=== PATIENT | female | born 1970 | race American Indian/Alaskan Native ===

== ENCOUNTER 2017-11-05 14:43 | Emergency (ER) | payer OTHER ==
--- NOTE | 2017-11-05 18:45 | Emergency Department Report ---
Chief Complaint: Syncope Stated Complaint: SYNCOPE - HPI History of Present Illness: 47-year-old female presents after syncope this morning approximately 6:35 AM She remembers taking a shower, she then woke up on the floor. She had preceding symptoms of feeling lightheaded. She denies chest pain. No shortness of breath. She denies back pain. No use of oral contraceptives. She took her blood pressure medicine this morning. She feels a little off. She desires STD testing because her significant other travels often. She is concerned that she could possibly be exposed to STD. I explained to her the testing should be obtained by her primary care physician. She is able to follow -up with her primary care physician tomorrow. - Exam Vital Signs: Vital Signs 11/05/17 14:55 Temperature 98 F Pulse Rate 100 H Respiratory 16 Rate Blood Pressure 154/94 O2 Sat by Pulse 98 Oximetry MSE screening note: Focused history and physical exam performed. Due to findings the following was ordered: ED Disposition for MSE Condition: Stable Referrals: PRIMARY CARE, [Primary Care Provider] - 3-5 Days
[2017-11-05 19:25] LABS: BUN/Creatinine Ratio 17; Blood Urea Nitrogen 10 mg/dL (7-17); Calcium 9.7 mg/dL (8.4-10.2); Hemolysis Index 36
[2017-11-05 19:29] LABS: Basophils # (Auto) 0.1 K/mm3 (0.0-0.1); Eosinophils # (Auto) 0.1 K/mm3 (0.0-0.4); Eosinophils % (Auto) 0.5 % (0.0-4.3); Hematocrit 39.5 % (30.3-42.9); Hemoglobin 12.4 gm/dl (10.1-14.3); Lymphocytes # (Auto) 2.7 K/mm3 (1.2-5.4); Lymphocytes % (Auto) 23.6 % (13.4-35.0); Mean Corpuscular HGB Conc 31 % (30-34); Mean Corpuscular Volume 74 fl (79-97); Monocytes # (Auto) 0.6 K/mm3 (0.0-0.8); Monocytes % (Auto) 5.5 % (0.0-7.3); Platelet Count 350 K/mm3 (140-440); Red Blood Count 5.34 M/mm3 (3.65-5.03); Red Cell Distribution Width 15.1 % (13.2-15.2)
[2017-11-05 19:31] LABS: Mean Corpuscular Hemoglobin 23 pg (28-32)
--- NOTE | 2017-11-05 20:36 | Emergency Department Report ---
ED Syncope HPI - General Chief Complaint: Syncope Stated Complaint: SYNCOPE Time Seen by Provider: 11/05/17 20:10 Source: patient, family Exam Limitations: no limitations - History of Present Illness Initial Comments: This is a patient here per that we ER with complaints of syncopal episode today. She said she was in the bathroom and she passed out couldn't remember what happened. Denies any headache or any pain. Denies any neck pain or stiffness. Denies any previous episode of passing out. She has a history of high blood pressure and her blood pressure is stable at present. Denies any nausea or vomiting. Denies any abdominal or back pain. Denies any visual difficulties. Denies any dizziness. Denies any urinary burning frequency or urgency. Denies any abdominal pain. Last menstrual period was 08/12/2014 and patient is in menopause. Denies nausea or vomiting. Denies fever or chills. Denies vaginal bleeding. Pain 0/10 Timing/Prior Episodes: single episode today Precipitating Factors: Positive: none Context: standing Loss of Consciousness: brief (seconds) Current Symptoms: back to normal. denies: blurred vision, chest pain, diaphoresis, dizziness, headache, injury, lightheadedness, loss of bladder control, loss of bowel control, motionless, nausea, pale, shallow/rapid breathing, weak/absent pulse, weakness - Related Data Allergies/Adverse Reactions: Allergies No Known Allergies Allergy (Verified 03/20/14 08:51) Home Medications: Ambulatory Orders Cyclobenzaprine [Flexeril 10 MG TAB] 10 mg PO TID PRN #20 tablet 08/28/14 Ibuprofen [Motrin 800 MG tab] 600 mg PO Q8H PRN #20 tablet 08/28/14 traMADol [Ultram 50 MG tab] 50 mg PO Q6HR PRN #14 tablet 08/28/14 Nitrofurantoin Monohyd/M-Cryst [Macrobid 100 mg Capsule] 100 mg PO Q12H 7 Days # 14 capsule 11/06/17 ED Review of Systems ROS: Stated complaint: SYNCOPE Other details as noted in HPI Comment: All other systems reviewed and negative Constitutional: no symptoms reported ENT: denies: ear pain, throat pain, congestion Respiratory: no symptoms reported Cardiovascular: denies: chest pain, palpitations, dyspnea on exertion, edema, syncope, paroxysmal nocturnal dyspnea Gastrointestinal: denies: abdominal pain, nausea, vomiting, diarrhea, constipation Genitourinary: denies: urgency, dysuria, frequency, hematuria, discharge Musculoskeletal: denies: back pain, joint swelling, arthralgia, myalgia Skin: denies: rash Neurological: denies: headache, weakness, numbness, paresthesias, confusion, abnormal gait, vertigo ED Past Medical Hx - Past Medical History Previous Medical History?: Yes Hx Hypertension: Yes - Surgical History Past Surgical History?: No - Family History Family history: hypertension - Social History Smoking Status: Never Smoker Substance Use Type: None - Medications Home Medications: Home Medications Medication Instructions Recorded Confirmed Last Taken Type Cyclobenzaprine [Flexeril 10 MG 10 mg PO TID PRN #20 tablet 08/28/14 Unknown Rx TAB] Ibuprofen [Motrin 800 MG tab] 600 mg PO Q8H PRN #20 tablet 08/28/14 Unknown Rx traMADol [Ultram 50 MG tab] 50 mg PO Q6HR PRN #14 tablet 08/28/14 Unknown Rx Nitrofurantoin Monohyd/M-Cryst 100 mg PO Q12H 7 Days #14 capsule 11/06/17 Unknown Rx [Macrobid 100 mg Capsule] ED Physical Exam - General Limitations: No Limitations General appearance: alert, in no apparent distress - Head Head exam: Present: atraumatic, normocephalic, normal inspection - Eye Eye exam: Present: normal appearance, PERRL, EOMI. Absent: nystagmus, periorbital swelling, periorbital tenderness Pupils: Present: normal accommodation - ENT ENT exam: Present: normal exam, normal orophraynx, mucous membranes moist - Neck Neck exam: Present: normal inspection, full ROM, other (no C-spine tenderness). Absent: tenderness, meningismus, lymphadenopathy, thyromegaly - Respiratory Respiratory exam: Present: normal lung sounds bilaterally. Absent: respiratory distress, wheezes, rales, rhonchi, stridor, chest wall tenderness, accessory muscle use, decreased breath sounds, prolonged expiratory - Cardiovascular Cardiovascular Exam: Present: regular rate, normal rhythm, normal heart sounds. Absent: systolic murmur, diastolic murmur - GI/Abdominal GI/Abdominal exam: Present: soft, normal bowel sounds. Absent: distended, tenderness, guarding, rebound, rigid, organomegaly, mass, bruit, pulsatile mass , hernia - Extremities Exam Extremities exam: Present: normal inspection, full ROM, normal capillary refill , other. Absent: tenderness, pedal edema, joint swelling, calf tenderness - Back Exam Back exam: Present: normal inspection, full ROM, other (ambulates without any difficulties). Absent: tenderness, CVA tenderness (R), CVA tenderness (L), muscle spasm, paraspinal tenderness, vertebral tenderness, rash noted - Neurological Exam Neurological exam: Present: alert, oriented X3, normal gait, reflexes normal. Absent: motor sensory deficit - Skin Skin exam: Present: warm, dry, intact, normal color. Absent: rash ED Course Vital Signs 11/05/17 14:55 Temperature 98 F Pulse Rate 100 H Respiratory 16 Rate Blood Pressure 154/94 O2 Sat by Pulse 98 Oximetry Vital Signs 11/05/17 11/05/17 14:55 22:56 Temperature 98 F Pulse Rate 100 H 77 Respiratory 16 18 Rate Blood Pressure 154/94 146/95 O2 Sat by Pulse 98 99 Oximetry - Reevaluation(s) Reevaluation #1: 11/06/17 00:31 Patient here with syncopal episode. She received oral liquids without any difficulties. neuro exam is normal ED Medical Decision Making - Lab Data Result diagrams: 11/05/17 18:54 11/05/17 18:54 Lab Results 11/05/17 11/05/17 11/05/17 Range/Units 18:54 18:54 20:12 WBC 11.3 H (4.5-11.0) K/mm3 RBC 5.34 H (3.65-5.03) M/mm3 Hgb 12.4 (10.1-14.3) gm/dl Hct 39.5 (30.3-42.9) % MCV 74 L (79-97) fl MCH 23 L (28-32) pg MCHC 31 (30-34) % RDW 15.1 (13.2-15.2) % Plt Count 350 (140-440) K/mm3 Lymph % (Auto) 23.6 (13.4-35.0) % Nicol[place] % (Auto) 5.5 (0.0-7.3) % Eos % (Auto) 0.5 (0.0-4.3) % Baso % (Auto) 1.0 (0.0-1.8) % Lymph # 2.7 (1.2-5.4) K/mm3 Nicol[place] # 0.6 (0.0-0.8) K/mm3 Eos # 0.1 (0.0-0.4) K/mm3 Baso # 0.1 (0.0-0.1) K/mm3 Seg Neutrophils % 69.4 (40.0-70.0) % Seg Neutrophils # 7.8 H (1.8-7.7) K/mm3 Sodium 141 (137-145) mmol/L Potassium 4.1 (3.6-5.0) mmol/L Chloride 100.5 (98-107) mmol/L Carbon Dioxide 25 (22-30) mmol/L Anion Gap 20 mmol/L BUN 10 (7-17) mg/dL Creatinine 0.6 L (0.7-1.2) mg/dL Estimated GFR > 60 ml/min BUN/Creatinine Ratio 17 % Glucose 116 H (65-100) mg/dL Calcium 9.7 (8.4-10.2) mg/dL Urine Color Yellow (Yellow) Urine Turbidity Clear (Clear) Urine pH 5.0 (5.0-7.0) Ur Specific Welch 1.024 (1.003-1.030) Urine Protein 30 mg/dl (Negative) mg/dL Urine Glucose (UA) Neg (Negative) mg/dL Urine Ketones 20 (Negative) mg/dL Urine Blood Neg (Negative) Urine Nitrite Neg (Negative) Urine Bilirubin Neg (Negative) Urine Urobilinogen < 2.0 (<2.0) mg/dL Ur Leukocyte Esterase Lg (Negative) Urine WBC (Auto) 59.0 H (0.0-6.0) /HPF Urine RBC (Auto) 32.0 (0.0-6.0) /HPF U Epithel Cells (Auto) 17.0 H (0-13.0) /HPF Urine Mucus 1+ /HPF Urine HCG, Qual Negative (Negative) Urine culture sent - EKG Data -: EKG Interpreted by Me (attending physician) EKG shows normal: sinus rhythm ([address] abnormality) Rate: normal - EKG Data Interpretation: no acute changes - Radiology Data Radiology results: report reviewed CT scan of the brain head without contrast reveals normal exam no acute extracranial or intracranial processes - Medical Decision Making ED course: Patient here with syncopal episode without any other symptoms. CT scan of the brain without contrast reveals no acute extracranial or intracranial findings. CBC stable except mild elevation in white count, BMP is stable, tests negative and urinalysis with positive ketones, positive white blood cells, leukocyte Estrace. Urine was mildly contaminated with epithelial cells but she had a large amount of white cell and leukocyte Estrace. Urine culture pending. I discussed lab results and CT scan along with EKG results the patient and told her that she needs to follow up with her primary care physician which she does have 1 and 2-3 days. Patient voiced understanding of discharge instruction, diagnosis and need to follow-up along with treatment plan. She was orally hydrated emergency room and tolerated juices well. Vital signs are stable. Patient discharged home a prescription for Macrobid. Critical care attestation.: If time is entered above; I have spent that time in minutes in the direct care of this critically ill patient, excluding procedure time. ED Disposition Clinical Impression: Acute cystitis without hematuria, Mild dehydration Episode of syncope Qualifiers: Syncope type: unspecified Qualified Code(s): R55 - Syncope and collapse Disposition: DC-01 TO HOME OR SELFCARE Is pt being admited?: No Does the pt Need Aspirin: No Condition: Stable Instructions: Syncope (ED), Dehydration (ED), Urinary Tract Infection in Women (ED) Additional Instructions: Please increase her fluid intake to 2-3 L of cranberry juice and/or water daily Take antibiotic as prescribed for urinary tract infection Your blood work showing that you had mild dehydration so he'll need to increase her fluid intake Follow up with a primary care physician and 3 days. Prescriptions: Nitrofurantoin Monohyd/M-Cryst [Macrobid 100 mg Capsule] 100 mg PO Q12H 7 Days # 14 capsule Referrals: PRIMARY CARE, [Primary Care Provider] - 2-3 Days [facility] [Outside] - 2-3 Days Forms: Work/School Release Form(ED)
[2017-11-05 20:40] LABS: Bilirubin,Urine NEG (Negative); Blood,Urine NEG (Negative); Color,Urine Yellow (Yellow); Mucus,Urine 1+ /HPF; Nitrite,Urine NEG (Negative); Urobilinogen,Urine < 2.0 mg/dL (<2.0)
[2017-11-05 20:41] LABS: HCG Qualitative,Urine Negative (Negative)
--- NOTE | 2017-11-05 21:38 | Cat Scan Report ---
FINAL REPORT PROCEDURE: CT HEAD/BRAIN WO CON TECHNIQUE: Computerized tomography of the head was performed without contrast material. HISTORY: Syncope COMPARISON: No prior studies are available for comparison. FINDINGS: Skull and scalp: Normal. Paranasal sinuses: Normal. Ventricles and subarachnoid spaces: Normal. Cerebrum: No evidence of hemorrhage, acute infarction or mass . Cerebellum and brainstem: No evidence of hemorrhage, acute infarction or mass. Vasculature: Normal. Comments: None. IMPRESSION: Normal Examination
[2017-11-05 23:21] VITALS: BP 146/95
[2017-11-06] MEDS ORDERED: MACROBID PO ONE (01:03)
== END 2017-11-06 01:08 | disposition home or self-care (01) ==
LOC: ED 14:43
DX: R55 Syncope and collapse (principal); N30.00 Acute cystitis without hematuria; E86.0 Dehydration; I10 Essential (primary) hypertension
CPT/HCPCS: 36415; 70450; 80048; 81001; 81025; 85025; 87086; 93005; 93010